=== PATIENT | female | born 1985 | race Caucasian/White ===

== ENCOUNTER 2023-02-11 23:46 | Emergency (ER) | payer BC, SELFPAY ==
--- NOTE | ~2023-02-11 | CT_ITS ---
EXAMINATION: CT abdomen pelvis w con DATE: 02/12/2023 02:05 INDICATION: Right lower quadrant abdominal pain. TECHNIQUE: Computed tomography (CT) of the abdomen and pelvis was performed with 100 mL Omnipaque 350 intravenous contrast. Automated exposure control and iterative reconstruction technique were employe d. The dose-length product was 1734.81 mGy-cm. COMPARISON: None. FINDINGS: The visualized portions of the lung bases demonstrate minimal atelectasis. No pleural effus ion. The heart size is normal. No pericardial effusion. The liver, gallbladder, spleen, pancreas, and adrenal glands are normal. There is a delayed right-sided contrast nephrogram. There is mild right h ydronephrosis and hydroureter. There is a 2 mm stone in distal right ureter. There is a 1 mm stone in left kidney. There is are cysts in the kidneys measuring up to 6 mm on the left. There is a ring sha ped device in the vagina. The appendix is normal. There are no pathologically enlarged lymph nodes. T here is no free intraperitoneal fluid. There is mild thoracic and lumbar spondylosis. IMPRESSION: 1. 2 mm stone in the distal right ureter with mild right hydronephrosis and hydroureter. 2. 1 mm nonobstructing left kidney stone. Reviewed, dictated and finalized at location A. IMPRESSION: 1. 2 mm stone in the distal right ureter with mild right hydronephrosis and hyd roureter. 2. 1 mm nonobstructing left kidney stone.
[2023-02-11 23:52] VITALS: BP 144/93; PULSE 91; RESP 16; TEMP 36.6; O2SAT 100
[2023-02-12] MEDS: ONDANSETRON INJ 4 MG/2 ML VIAL IV PUSH (01:10)
[2023-02-12] MEDS: SODIUM CHLORIDE 0.9% IV 1,000 ML 999 ML IV CONT (01:10)
[2023-02-12] MEDS: KETOROLAC 30 MG/ML VIAL (*BKC) IV PUSH (01:10)
[2023-02-12 01:14] LABS: Basophils Absolute Auto 0.1 K/mm3 (0.0-0.1); Basophils Percent Auto 0.5 % (0.2-1.2); Eosinophils Absolute Auto 0.2 K/mm3 (0-0.3); Eosinophils Percent Auto 1.3 % (0-4.4); Hematocrit 37.9 % (37.0-47.0); Hemoglobin 12.7 g/dL (12.0-15.0); Immature Granulocyte Absolute 0.05 K/mm3 (0.00-0.031); Immature Granulocyte Percent A 0.4 % (0-0.5); Lymphocytes Absolute Auto 2.55 K/mm3 (0.9-3.2); Lymphocytes Percent Auto 19.6 % (18.3-44.2); Mean Corpuscular HGB Conc 33.5 g/dl (32-36); Mean Corpuscular Hemoglobin 28.7 pg (26-34); Mean Corpuscular Volume 85.6 fl (80-100); Mean Platelet Volume 10.7 fl (7.4-10.4); Monocytes Absolute Auto 1.1 K/mm3 (0.1-0.6); Monocytes Percent Auto 8.2 % (2.6-8.5); Neutrophils Absolute Auto 9.1 K/mm3 (1.3-6.7); Platelet Count Result 301 k/mm3 (150-375); Red Blood Count 4.43 M/mm3 (4.2-5.4); Red Cell Distribution Width 13.1 % (11.5-14.5)
[2023-02-12 01:26] LABS: Alanine Aminotransferase 43 U/L (6-35); Albumin Level 3.5 g/dL (3.5-5.1); Alkaline Phosphatase 84 U/L (38-126); Anion Gap 8 mmol/L (8-16); Aspartate Amino Transferase 38 U/L (14-36); Bilirubin,Total 0.5 mg/dL (0.2-1.3); Blood Urea Nitrogen 15 mg/dL (7-17); Calcium 8.5 mg/dL (8.4-10.2); Carbon Dioxide 24 mmol/L (22-30); Chloride 107 mmol/L (98-107); Estimated CRCL calculation 106 ml/min; Estimated Glomerular Filt Rate > 60; Glucose 162 mg/dL (65-110); Lipase 114 U/L (23-300); Potassium 3.8 mmol/L (3.4-5.0); Sodium 139 mmol/L (137-145)
[2023-02-12 01:44] LABS: Appearance Urine Clear (Clear); Bacteria Urine None Seen /hpf; Bilirubin Urine Negative (Negative); Blood Urine 2+ (Negative); Color Urine Yellow (Yellow); Glucose Urine UA Negative (Negative); Ketones Urine Negative (Negative); Leukocyte Esterase Ur Negative LEU/UL (Negative); Nitrate Urine Negative (Negative); Protein Urine Negative (Negative); RBC Urine 21-50 /hpf (0-2); Specific Grav Ur 1.016 (1.001-1.035); Squamous Epithelial Cell Urine None seen /hpf (Few); WBC Urine 0-5 /hpf
[2023-02-12 01:50] LABS: Add Urine Microscopic? YES
[2023-02-12 03:39] VITALS: BP 138/84; PULSE 59; RESP 17; O2SAT 100
--- NOTE | 2023-02-12 03:44 | ED.GENADULT ---
HPI - General Adult General Chief complaint: Abdominal Pain Stated complaint: abd pain Time Seen by Provider: 02/12/23 00:39 History of Present Illness HPI narrative: Patient is a 37-year-old female who presents the emergency department with chief complaint of abdominal pain. Patient reports he started having pain the localized to her right lower quadrant. The patient reports the pain is not worse with palpation and worse not worse with movement. The patient reports that the pain does radiate to her back denies fever patient which she was concerned because she has right lower quadrant and she was worried that maybe her appendix. 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 Related Data Allergies Allergy/AdvReac Type Severity Reaction Status Date / Time Penicillins AdvReac Unknown HIVES Verified 02/12/23 01:10 Review of Systems Review of Systems: A 10 system review of systems was completed on the patient and is negative except for what is stated in the HPI. Nursing and ancillary documentation was reviewed. Exam Narrative: GENERAL: Well-appearing, well-nourished, and in no acute distress. HEAD: Normocephalic, atraumatic. EYES: PERRLA and EOMI. ENT: Nares clear, no rhinorrhea or epistaxis. Mucous membranes moist. NECK: Supple. CHEST: Clear to auscultation. No respiratory distress. HEART: Regular rate and rhythm. No murmur heard. Normal peripheral pulses. ABDOMEN: Soft, nontender, nondistended, normal active bowel sounds. EXTREMITIES: Normal range of motion. No edema. SKIN: Warm, dry, no rash. NEURO: No focal deficits. Alert and oriented x3. PSYCH: Normal mood and affect. Course Vital Signs Vital signs: Vital Signs Temperature 36.6 C 02/11/23 23:52 Pulse Rate 91 02/11/23 23:52 Respiratory Rate 16 02/11/23 23:52 Blood Pressure 144/93 H 02/11/23 23:52 Pulse Oximetry 100 02/11/23 23:52 Oxygen Delivery Room Air 02/11/23 23:52 Temperature 36.6 C 02/11/23 23:52 Pulse Rate 59 L 02/12/23 03:39 Respiratory Rate 17 02/12/23 03:39 Blood Pressure 138/84 02/12/23 03:39 Pulse Oximetry 100 02/12/23 03:39 Oxygen Delivery Room Air 05/06/23 23:52 Medical Decision Making MDM Narrative Medical decision making narrative: Differential diagnosis includes colitis, pancreatitis, diverticulitis, appendicitis, ovarian cyst Laboratory studies were obtained which showed a white count of 13.0 Electrolytes were within normal limits liver enzymes showed AST of 38 and ALT of 43 bilirubin was normal at 0.5 Urinalysis showed no evidence of UTI there was 21-50 red blood cells in the urine CT scan shows mild right hydronephrosis and inflammation around the right ureter which is consistent with a passed stone. Vital Signs Vital Signs: Vital Signs Temperature 36.6 C 02/11/23 23:52 Pulse Rate 91 02/11/23 23:52 Respiratory Rate 16 02/11/23 23:52 Blood Pressure 144/93 H 02/11/23 23:52 Pulse Oximetry 100 02/11/23 23:52 Oxygen Delivery Room Air 02/11/23 23:52 Temperature 36.6 C 02/11/23 23:52 Pulse Rate 59 L 02/12/23 03:39 Respiratory Rate 17 02/12/23 03:39 Blood Pressure 138/84 02/12/23 03:39 Pulse Oximetry 100 02/12/23 03:39 Oxygen Delivery Room Air 02/11/23 23:52 Lab Data 02/12/23 00:59 02/12/23 00:59 Labs: Lab Results 02/12/23 Range/Units 00:59 WBC 13.0 H (4.5-10.0) K/mm3 RBC 4.43 (4.2-5.4) M/mm3 Hgb 12.7 (12.0-15.0) g/dL Hct 37.9 (37.0-47.0) % MCV 85.6 (80-100) fl MCH 28.7 (26-34) pg MCHC 33.5 (32-36) g/dl RDW 13.1 (11.5-14.5) % Plt Count 301 (150-375) k/mm3 MPV 10.7 H (7.4-10.4) fl Immature Gran % (Auto) 0.4 (0-0.5) % Neut % (Auto) 70.0 (45.5-73.1) % Lymph % (Auto) 19.6 (18.3-44.2) % Tift % (Auto) 8.2 (2.6-8.5) % Eos % (Auto) 1.3 (0-4.4) % Baso % (Auto) 0.5 (0.2-1.2) % Lymph # (Auto) 2.55 (0.9-3.2) K/mm3 Tift # (Auto) 1.1 H (0.1-
== END 2023-02-12 05:15 | disposition home or self-care (01) ==
PROVIDERS: Emergency Provider Emergency Medicine; PCP Family Medicine
DX: N13.2 Hydronephrosis with renal and ureteral calculous obstruction (principal)
CPT/HCPCS: 36415; 74177; 80053; 81001; 81025; 83690; 85025; 96361; 96374; 96375; 99284; J1885; J2405; J7030; Q9967